=== PATIENT | female | born 1970 | race Caucasian/White ===

== ENCOUNTER 2017-09-25 16:20 | Emergency (ER) | payer SELFPAY ==
[~2017-09-25] VITALS: Ht 154.9 cm; Wt 60.0 kg
[2017-09-25 16:34] VITALS: BP 113/77; PULSE 107; RESP 16; TEMP 98; O2SAT 97
--- NOTE | 2017-09-25 16:48 | PD ---
HPI Chief Complaint: Cold / Flu Symptoms Time Seen by Provider: 16:40 Travel History International Travel<30 days: No Contact w/Intl Traveler<30days: No Traveled to known affect area: No History of Present Illness HPI 47-year-old female presents for evaluation. For 1 day she has had a dry cough, stuffy nose, slightly sore throat and myalgias with a temperature 100 yesterday but no fever today. She has been using ibuprofen and Tylenol but symptoms persisted which prompted evaluation. She reports that several people at her work have had similar symptoms. She did not receive influenza vaccination this year. She has no other complaints at this time. 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: Yes (HX.PID) Immunizations Current: No ?: Not LMP: 09/20/17 Menopausal: No : 4 Para: 2 Miscarriage: 1 : 1 Dilation and Curettage (D&C): Yes (1995) Tubal Ligation: Yes (1997) Past Surgical History Oral Surgery: Yes Other Surgery: Yes (BREAST REDUCTION -1986) Social History Alcohol Use: Yes (Socially) Tobacco Use: Yes (1 PPD) Substance Use: No Allergies-Medications (Allergen,Severity, Reaction): Coded Allergies: Sulfa (Sulfonamide Antibiotics) (Unverified Allergy, Severe, ABD PAIN, 09/25/17) ciprofloxacin (Unverified Allergy, Severe, 09/25/17) hydrocodone (Unverified Allergy, Severe, BREATHING PROBLEMS PER PT, ) doxycycline (Unverified Allergy, Intermediate, Rash, 09/25/17) ceftriaxone (Unverified Allergy, Mild, Rash, 09/25/17) cephalexin (Unverified Allergy, Mild, RASH, 09/25/17) methylergonovine (Unverified Allergy, Mild, RASH, DIARRHEA, 09/25/17) naproxen (Unverified Allergy, Mild, Rash, 09/25/17) penicillin G (Unverified Allergy, Mild, UNKNOWN, 09/25/17) Reported Meds & Prescriptions Reported Meds & Active Scripts Active No Active Prescriptions or Reported Medications Review of Systems Except as stated in HPI: all other systems reviewed are Neg Physical Exam Narrative GENERAL: Well-nourished female in no acute distress SKIN: Warm and dry. HEAD: Atraumatic. Normocephalic. EYES: Pupils equal and round. No scleral icterus. No injection or drainage. ENT: No nasal bleeding or discharge. Mucous membranes pink and moist. NECK: Trachea midline. No JVD. CARDIOVASCULAR: Regular rate and rhythm. No murmur appreciated. RESPIRATORY: No accessory muscle use. Clear to auscultation. Breath sounds equal bilaterally. Data Data Last Documented VS Vital Signs Date Time Temp Pulse Resp B/P (MAP) Pulse Ox O2 Delivery O2 Flow Rate FiO2 09/25/17 16:34 98.0 107 16 113/77 (89) 97 Orders Orders Influenzae A/B Antigen (09/25/17 16:46) [facility] Medical Decision Making Medical Screen Exam Complete: Yes Emergency Medical Condition: Yes Medical Record Reviewed: Yes Differential Diagnosis Influenza, rhinitis, sinusitis, bronchitis, pneumonia, pharyngitis Narrative Course 47-year-old female here with 1 day history of dry cough, stuffy nose, sore throat, myalgias, temperature 100 yesterday. Physical examination is reassuring. Influenza antigen test was performed and is negative. She appears to have a viral upper respiratory infection. She is stable for discharge. Diagnosis Primary Impression: Upper respiratory infection Departure Forms: Tests/Procedures, Work Release Enter return to work date: Sep 29, 2017 Additional Instructions: Stay well hydrated and well-nourished, avoid tobacco products, follow-up with primary care, return for any emergent medical conditions. Med/Other Pt SpecificInfo: No Change to Meds Scripts No Active Prescriptions or Reported Meds Disposition: DISCHARGE HOME Condition: Stable Kian Qiu Sep 25, 2017 16:48
== END 2017-09-25 17:51 | disposition home or self-care (01) ==
LOC: PHEFT 16:20
DX: J06.9 Acute upper respiratory infection, unspecified (principal); F17.210 Nicotine dependence, cigarettes, uncomplicated
CPT/HCPCS: 87804; 99283

== ENCOUNTER 2017-12-26 12:28 | Emergency (ER) | payer SELFPAY ==
[~2017-12-26] VITALS: Ht 154.9 cm; Wt 58.8 kg
[2017-12-26 12:33] VITALS: BP 141/69; PULSE 103; RESP 20; TEMP 97.9; O2SAT 96
[2017-12-26] MEDS ORDERED: CLIN300C5 PO (13:41)
--- NOTE | 2017-12-26 13:41 | PD ---
HPI Chief Complaint: Cold / Flu Symptoms Time Seen by Provider: 13:25 Travel History International Travel<30 days: No Contact w/Intl Traveler<30days: No Traveled to known affect area: No History of Present Illness HPI This is a 47-year-old female with left upper dental pain 4 days. She has a decayed and fractured tooth at the site of the pain. There is moderate. Aggravated by heat and cold. No alleviating factors. Patient has a dental appointment on Friday. 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: Yes (HX.PID) Immunizations Current: No Tetanus Vaccination: > 5 Years Influenza Vaccination: No ?: Not LMP: 12/12/17 Menopausal: No : 4 Para: 2 Miscarriage: 1 : 1 Dilation and Curettage (D&C): Yes (1995) Tubal Ligation: Yes (1997) Past Surgical History Oral Surgery: Yes Other Surgery: Yes (BREAST REDUCTION -1986) Social History Alcohol Use: Yes (Socially) Tobacco Use: Yes (1 PPD) Substance Use: No Allergies-Medications (Allergen,Severity, Reaction): Coded Allergies: Sulfa (Sulfonamide Antibiotics) (Verified Allergy, Severe, ABD PAIN, ) ciprofloxacin (Verified Allergy, Severe, 12/26/17) hydrocodone (Verified Allergy, Severe, BREATHING PROBLEMS PER PT, 12/26/17) doxycycline (Verified Allergy, Intermediate, Rash, 12/26/17) ceftriaxone (Verified Allergy, Mild, Rash, 12/26/17) cephalexin (Verified Allergy, Mild, RASH, 12/26/17) methylergonovine (Verified Allergy, Mild, RASH, DIARRHEA, 12/26/17) naproxen (Verified Allergy, Mild, Rash, 12/26/17) penicillin G (Verified Allergy, Mild, UNKNOWN, 12/26/17) Reported Meds & Prescriptions Reported Meds & Active Scripts Active Active Prescriptions or Reported Medications Unobtainable Review of Systems Except as stated in HPI: all other systems reviewed are Neg General / Constitutional: No: Fever Eyes: No: Visual changes HENT: Positive: Dental Difficulties Cardiovascular: No: Chest Pain or Discomfort Respiratory: No: Shortness of Breath Gastrointestinal: No: Abdominal Pain Genitourinary: No: Dysuria Musculoskeletal: No: Pain Physical Exam Narrative GENERAL: Alert and well-appearing 47 old female SKIN: Warm and dry. HEAD: Normocephalic. EYES: No injection or drainage. MOUTH: Decayed and fractured premolar with surrounding gum erythema and tenderness NECK: Supple CARDIOVASCULAR: Regular rate and rhythm without murmurs, gallops, or rubs. RESPIRATORY: Breath sounds equal bilaterally. No accessory muscle use. Data Data Last Documented VS Vital Signs Date Time Temp Pulse Resp B/P (MAP) Pulse Ox O2 Delivery O2 Flow Rate FiO2 12/26/17 12:33 97.9 103 20 141/69 (93) 96 MDM Medical Decision Making Medical Screen Exam Complete: Yes Emergency Medical Condition: Yes Differential Diagnosis Dental abscess, dental fracture, dental caries Narrative Course 47-year-old female here with left upper dental pain and surrounding gum erythema. She is nontoxic appearing. Patient will be treated for dental infection. Diagnosis Primary Impression: Dental infection Referrals: Dentist Additional Instructions: Antibiotics as prescribed. Tylenol or ibuprofen as needed for pain. Follow-up with the dentist at scheduled appointment. Scripts Clindamycin (Clindamycin) 300 Mg Cap 300 MG PO TID for Infection for 7 Days, CAP 0 Refills Prov: Shantal Peck 12/26/17 Disposition: 01 DISCHARGE HOME Condition: Stable Shantal Peck Dec 26, 2017 13:41
== END 2017-12-26 13:56 | disposition home or self-care (01) ==
LOC: PHEFT 12:28
DX: K04.7 Periapical abscess without sinus (principal); F17.210 Nicotine dependence, cigarettes, uncomplicated
CPT/HCPCS: 99283

== ENCOUNTER 2018-03-21 12:50 | Emergency (ER) | payer SELFPAY ==
[~2018-03-21 12:50] MED LIST: CLIN300C5 PO
[2018-03-21 13:03] VITALS: PULSE 92; RESP 20; TEMP 98.3; O2SAT 97
--- NOTE | 2018-03-21 13:40 | PD ---
HPI Chief Complaint: Eye Problems/Injury Time Seen by Provider: 13:28 Travel History International Travel<30 days: No Contact w/Intl Traveler<30days: No Traveled to known affect area: No History of Present Illness HPI 48-year-old female presents to the emergency department for evaluation of erythema above bilateral eyes. She states he started with the left eye and spread to the right eye. Patient denies any fevers or chills. No pain with EOMs. She states she has some steroid drops at home that she has been using with antibiotic that have not helped. 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 She has been following up with Dr. Day, cruise director. She has been referred to a specialist for the muscles of her eye. She states she did have left eye pain yesterday. She states that she still has it, but it is much improved. She currently rates a 5/10 to the left eye. No visual changes. Moderate severity. 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: Yes (HX.PID) Immunizations Current: No ?: Not Menopausal: No : 4 Para: 2 Miscarriage: 1 : 1 Dilation and Curettage (D&C): Yes (1995) Tubal Ligation: Yes (1997) Past Surgical History Oral Surgery: Yes Other Surgery: Yes (BREAST REDUCTION -1986) Social History Alcohol Use: Yes (Socially) Tobacco Use: Yes (1 PPD) Substance Use: No Allergies-Medications (Allergen,Severity, Reaction): Coded Allergies: Sulfa (Sulfonamide Antibiotics) (Verified Allergy, Severe, ABD PAIN, ) ciprofloxacin (Verified Allergy, Severe, 03/21/18) hydrocodone (Verified Allergy, Severe, BREATHING PROBLEMS PER PT, 03/21/18) doxycycline (Verified Allergy, Intermediate, Rash, 03/21/18) ceftriaxone (Verified Allergy, Mild, Rash, 03/21/18) cephalexin (Verified Allergy, Mild, RASH, 03/21/18) methylergonovine (Verified Allergy, Mild, RASH, DIARRHEA, 03/21/18) naproxen (Verified Allergy, Mild, Rash, 03/21/18) penicillin G (Verified Allergy, Mild, UNKNOWN, 03/21/18) Reported Meds & Prescriptions Reported Meds & Active Scripts Active No Active Prescriptions or Reported Medications Review of Systems Except as stated in HPI: all other systems reviewed are Neg Physical Exam Narrative GENERAL: Well-nourished, well-developed female patient, ambulatory. Afebrile. SKIN: Focused skin assessment warm/dry. Slight erythema noted to bilateral upper and lower eyelids. No edema. HEAD: Normocephalic. Atraumatic. EYES: No scleral icterus. No injection or drainage. PERRLA. EOM intact. No pain with EOMs. IOP is 14 in the left eye and 17 in the right eye. NECK: Supple, trachea midline. No JVD or lymphadenopathy. CARDIOVASCULAR: Regular rate and rhythm without murmurs, gallops, or rubs. RESPIRATORY: Breath sounds equal bilaterally. No accessory muscle use. Lung sounds are clear to auscultation. MUSCULOSKELETAL: No cyanosis, or edema. Data Data Last Documented VS Vital Signs Date Time Temp Pulse Resp B/P (MAP) Pulse Ox O2 Delivery O2 Flow Rate FiO2 03/21/18 13:58 157/89 (111) 03/21/18 13:03 98.3 92 20 97 Orders Orders Proparacaine 0.5% Opth Soln (Alcaine 0.5 (03/21/18 13:45) MDM Medical Decision Making Medical Screen Exam Complete: Yes Emergency Medical Condition: Yes Medical Record Reviewed: Yes Differential Diagnosis Preseptal cellulitis versus orbital cellulitis vs. dermatitis versus glaucoma Narrative Course 48-year-old female presents to the emergency department for evaluation of erythema to bilateral upper eyelids. No visual changes. She does state that she has some pain to the left eye. Therefore, I pressures were checked. IOP is 14 in the left eye and 17 in the right eye. Exam is consistent with a dermatitis. However, the area did spread to the other eyelid. Therefore, patient will be discharged with a prescription for clindamycin for possible preseptal cellulitis. She is encouraged to follow-up with her cruise director. The patient was discharged in stable condition with instructions, including return instructions and follow up instructions. Diagnosis Primary Impression: Preseptal cellulitis Additional Impression: Contact dermatitis Qualified Codes: L24.9 - Irritant contact dermatitis, unspecified cause Referrals: Assistant Art Director call for appointment Patient Instructions: Cellulitis (ED), General Instructions Additional Instructions: Take antibiotic as directed until gone. [id number] Benadryl 25-50 mg every 6-8 hours as needed for itching. Follow-up with your cruise director. Return to the emergency department for any acute worsening of symptoms Med/Other Pt SpecificInfo: Prescription(s) given Scripts Clindamycin (Clindamycin) 300 Mg Cap 300 MG PO TID for Infection for 7 Days, CAP 0 Refills Prov: Mary Hodge 03/21/18 Disposition: 01 DISCHARGE HOME Condition: Stable Mary Hodge March 21, 2018 13:40
[2018-03-21] MEDS ORDERED: PROPARACAINE HCL 0.5% OPHT SOLN 15 ML BTL EACH EYE ONE (13:45)
[2018-03-21 13:58] VITALS: BP 157/89
[2018-03-21] MEDS ORDERED: CLIN300C5 PO (14:01)
== END 2018-03-21 14:18 | disposition home or self-care (01) ==
LOC: PHED 12:50 → PHEFT 14:18
DX: L03.213 Periorbital cellulitis (principal); L24.9 Irritant contact dermatitis, unspecified cause; H40.9 Unspecified glaucoma; F17.200 Nicotine dependence, unspecified, uncomplicated
CPT/HCPCS: 99283